=== PATIENT | male | born 1960 | race Caucasian/White ===

== ENCOUNTER 2018-01-15 13:57 | Inpatient (IN) ==
--- NOTE | 2018-01-14 09:10 | Discharge Summary ---
<Khushbu Ma - Last Filed: 01/14/18 09:07> Date of Encounter: 01/14/18 - Discharge Diagnosis (1) Status post total left knee replacement Priority: Primary Status: Acute (2) Arthritis of left knee Priority: Primary Status: Chronic (3) HTN (hypertension) Priority: Secondary Status: Chronic Qualifiers: Hypertension type: unspecified Qualified Code(s): I10 - Essential (primary ) hypertension (4) HLD (hyperlipidemia) Priority: Secondary Status: Chronic Qualifiers: Hyperlipidemia type: unspecified Qualified Code(s): E78.5 - Hyperlipidemia , unspecified (5) Tobacco dependence Priority: Secondary Status: Chronic - Hospital Course Hospital course: Mr. Kamara is a 58 year old male - Time Spent with Patient Total time spent providing and/or coordinating discharge services: - Discharge Medications Home Medications: Aspirin Enteric Coated [Aspirin EC] 325 mg PO BID 10 Days #20 tablet. [Rx] OxyCODONE Immed Rel [Roxicodone 5 MG] 5 mg PO Q6HR PRN 7 Days #28 tablet [Rx] Amlodipine Besylate/Benazepril [Lotrel 5-20 mg Capsule] 1 tab PO DAILY 01/15/18 [History] HYDROcodone/Acet 5/325 mg [[place] 5-325 mg] 1 - 2 tab PO Q12H PRN 01/15/18 [ History] hydroCHLOROthiazide [Hydrochlorothiazide] 25 mg PO DAILY 01/15/18 [History] Allergies/Adverse Reactions: 3 Allergy/AdvReac Type Severity Reaction Status Date / Time No Known Allergies Allergy Verified 01/15/18 14:23 Primary care physician: Nadya Sam CNP - Patient Status Disposition: Home, Self-Care Condition: Good - Discharge Instructions Follow Up With: Nadya Sam CNP [Primary Care Provider] - <Felix Davis - Last Filed: 01/16/18 06:15> Orders not resulted at time of discharge: Pending orders 01/15/18 01:00 XR knee LT limited 1-2V [XR] Routine Hemoglobin and Hematocrit [HEME] Routine Date of Encounter: 01/16/18 Time of Encounter: 06:15 - Discharge Diagnosis (1) Status post total left knee replacement Priority: Primary Status: Acute (2) Arthritis of left knee Priority: Primary Status: Chronic (3) HTN (hypertension) Priority: Secondary Status: Chronic Qualifiers: Hypertension type: unspecified Qualified Code(s): I10 - Essential (primary ) hypertension (4) HLD (hyperlipidemia) Priority: Secondary Status: Chronic Qualifiers: Hyperlipidemia type: unspecified Qualified Code(s): E78.5 - Hyperlipidemia , unspecified (5) Tobacco dependence Priority: Secondary Status: Chronic - Hospital Course Hospital course: Mr. Kamara is a 58 year old male As post left total knee replacement The patient had an uneventful postoperative course. They received antibiotics and physical therapy and were discharged in stable condition. There will follow -up in the office in 2 weeks. - Time Spent with Patient Total time spent providing and/or coordinating discharge services: Primary care physician: Nadya Sam CNP - Patient Status Functional capacity at discharge: uses cane/walker Overall status at discharge: patient is progressing back to baseline
[2018-01-15] MEDS ORDERED: Albuterol 2.5 MG/3 ML NEBULIZER IH ONE (14:22)
[2018-01-15] MEDS ORDERED: CeFAZolin Syr 2,000MG/20 ML 2,000 MG/20 ML SYRINGE IVPB ONE (14:22)
[2018-01-15] MEDS ORDERED: Ringers Solution, Lactated 1,000 ML IVC SCH ×2 (14:30→20:43)
[2018-01-15] MEDS ORDERED: Gabapentin 300 MG CAPSULE PO ONE (15:24)
[2018-01-15] MEDS ORDERED: Famotidine 20 MG/2 ML VIAL IVP ONE (15:24)
--- NOTE | 2018-01-15 16:28 | History & Physical Report ---
Date of Encounter: 01/15/18 Time of Encounter: 16:28 24 Hour HP Update - Instructions Instructions: If the History and Physical is less than 30 days old and was completed prior to A.M. admission and or procedure and has NOT been updated on calendar day of procedure please complete this update prior to performing procedure. - Update Patient reports changes in Medical Condition: No Changes in examination, assessment, or condition: No Changes in Medication: No Preop tests/diagnostics Reviewed: Yes Surgery Remains Indicated: Yes Consent for Planned Operative Procedure(s) Verified: Yes - Pre-Operative Checklist Preoperative Checklist Indicated: No Prophylactic Antibiotic Ordered: Yes Is VTE Prophylaxis Indicated?: Yes
[2018-01-15] MEDS ORDERED: *HR* Midazolam HCl 2 MG/2 ML VIAL ONE (17:06)
[2018-01-15] MEDS ORDERED: *HR* FentaNYL (PF) 100 MCG/2 ML VIAL ONE (17:06)
[2018-01-15] MEDS ORDERED: *HR* Propofol 200 MG/20 ML VIAL IVP ONE (17:06)
[2018-01-15] MEDS ORDERED: *HR* Succinylcholine 200 MG/10 ML VIAL IVP ONE (17:06)
[2018-01-15] MEDS ORDERED: Ondansetron 4 MG/2 ML VIAL ONE (17:06)
[2018-01-15] MEDS ORDERED: Dexamethasone 4 MG/ML VIAL ONE (17:06)
[2018-01-15] MEDS ORDERED: Lidocaine -MPF 2% 2 ML VIAL ONE (17:07)
--- NOTE | 2018-01-15 17:37 | Anesthesia Evaluation PreOp ---
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 [Rx] OxyCODONE Immed Rel [Roxicodone 5 MG] 5 mg PO Q6HR PRN 7 Days #28 tablet [Rx] Amlodipine Besylate/Benazepril [Lotrel 5-20 mg Capsule] 1 tab PO DAILY 01/15/18 [History] HYDROcodone/Acet 5/325 mg [[place] 5-325 mg] 1 - 2 tab PO Q12H PRN 01/15/18 [ History] hydroCHLOROthiazide [Hydrochlorothiazide] 25 mg PO DAILY 01/15/18 [History] 3 Allergy/AdvReac Type Severity Reaction Status Date / Time No Known Allergies Allergy Verified 01/15/18 14:23 - Meds/Allergy Pre-op Review Medications Reviewed: Yes Allergies Reviewed: Yes Beta Blockers on Current Med List: No Anesthesia Results - Labs Laboratory Tests 01/08/18 01/08/18 13:41 13:41 Hgb 15.4 Hct 43.6 Plt Count 283 Sodium 134 L Potassium 3.9 BUN 14 Creatinine 0.85 - Imaging EKG: report reviewed (SR) Anesthesia Exam O2 Sat Height 1.88 m Height 1.88 m Weight 100.698 kg Weight 100.698 kg O2 Sat by Pulse Oximetry 96 Vital Signs Temp Pulse Resp BP Pulse Ox 98.6 F 74 16 117/71 96 01/15/18 14:23 01/15/18 14:23 01/15/18 14:23 01/15/18 14:23 01/15/18 14:23 Height: 6'2 Weight: 222 lbs NPO (# of Hours): MN Pain Scale: 0 - HEENT Pupil (Motor): Pupils equal, EOMI Mallampati: II Teeth: Normal Oral Opening: Greater than 3 - VAT CLEANER LOC: Oriented VAT CLEANER Motor: Normal RUE, Normal LUE, Normal RLE, Normal LLE, Normal Face VAT CLEANER Sensory: Normal: RUE, LUE, RLE, LLE, Face - Cardiac Rhythm: Regular Murmur: None JVD: No Carotid Bruit: No - Pulmonary Breath Sounds: bilateral Clear Respiratory Effort: Symmetrical Anesthesia Assess/Plan ASA Score: 2 Modified Susan Scale for Level of Consciousness: Cooperative, oriented, and tranquil Anesthetic Plan: Regional, MAC Monitoring Plan: Standard Monitors Recovery Plan: PACU (Discussed SAB with Adductor Canal Block, MAC, possible GA, agrees to proceed)
[2018-01-15] MEDS ORDERED: ROPIVACAINE HCL/PF 0.5% 30 ML VIAL ONE (17:42)
[2018-01-15] MEDS ORDERED: Ethanol\\Acetic Acid\\Na Ace\\Ben 1,000 ML IRRIG.SOLN IR ONE (17:43)
[2018-01-15] MEDS ORDERED: *HR* Enoxaparin 30 MG/0.3 ML SYRINGE SQ SCH (18:00)
[2018-01-15] MEDS ORDERED: Lidocaine -MPF 4% 5 ML AMPUL ONE (18:04)
[2018-01-15] MEDS ORDERED: Propofol 500 MG/50 ML INFUS..BTL ONE ×2 (18:04→19:03)
--- NOTE | 2018-01-15 18:10 | Anesthesia Procedures ---
Date of Encounter: 01/15/18 Time of Encounter: 17:35 Procedures: Anesthesia - Epidural/Spinal Patient ID/Chart reviewed: Yes Patient examined: Yes Supplemental Oxygen: Nasal Cannula (2) Sedation: Versed (mg): 2 Sedation: Fentanyl (mcg): 50 Site Prep: Aseptic Technique, Sterile prep and drape, Povidone-Iodine 1% Patient position: upright Local Anesthetic: Lidocaine 1% Amount of Local Anesthetic used: [address]: Tegaderm Interspace Used: L4-L5 Loss of Resistance (YAIMA): No Blood: No CSF: Yes Paresthesia: No Spinal Needle Gauge: 24 Spinal Dose: 2cc 0.5% Marcaine, 0.3 mg Duramorph Procedure: Patient sitting, monitors placed, sterile prep and drape midline L4-5, plus CSF, 24 gauge needle patient tolerated procedure well
--- NOTE | 2018-01-15 18:13 | Anesthesia Procedures ---
Date of Encounter: 01/15/18 Time of Encounter: 17:35 Procedures: Anesthesia - Nerve Block Procedure Date: 01/15/18 Time: 18:00 Pre-op Diagnosis: Left Knee OA Surgical Procedure: Left TKA Checklist: Correct Patient Identifier Correct side: Left Blood Thinner: No Monitor Applied: EKG, BP, Pulse Oximetry Supplemental Oxygen via Nasal Cannula (L/min): 2 Sedation: Versed (mg): 2 Sedation: Fentanyl (mcg): 50 Indication: Post Op Analgesia Pre-op Neuro Deficits: No Block Type: Other (Adductor Canal Block) Catheter placed: No Depth at skin (cm): 4 Sterile Technique: Yes Ultrasound used: Yes Anatomy identified: Yes Visual spread of Local: Yes Neuro Stimulation: No Blood on Needle Aspiration: No Smooth Injection of Local: Yes Pain with Injection of Local: No Prep: Chlorhexadine Needle: 21 x 100 mm Stimuplex Local: Ropivacaine (0.5%) Volume (cc): 30 Number of Attempts: 1 Complications: None/effective block Vitals: Vital Signs/O2 Sat/Glucose, Most Current Temp Pulse Resp BP Pulse Ox 01/15/18 17:54 74 16 131/78 99 01/15/18 17:41 78 16 117/88 98 01/15/18 17:37 98.6 F 74 16 117/71 96 01/15/18 17:30 98 16 118/73 01/15/18 14:23 98.6 F 74 16 117/71 96
[2018-01-15] MEDS ORDERED: *HR* PHENYLEPHRINE 1,000 MCG/10 ML SYRINGE IVP ONE (18:45)
[2018-01-15] MEDS ORDERED: MORPHINE SUL Oral CONC 10 MG/0.5 ML ORAL.SYG SL PRN (18:48)
[2018-01-15] MEDS ORDERED: *HR* OxyCODONE Immed Rel 5 MG TABLET PO PRN (18:48)
[2018-01-15] MEDS ORDERED: *HR* Promethazine 25 MG/ML VIAL IVP PRN (18:48)
[2018-01-15] MEDS ORDERED: Ondansetron 4 MG/2 ML VIAL IVP PRN ×2 (18:54→20:43)
[2018-01-15] MEDS ORDERED: Naloxone 0.4 MG/ML INJ IVP PRN ×2 (18:54→20:43)
[2018-01-15] MEDS ORDERED: Ibuprofen 400 MG TABLET PO PRN (18:54)
[2018-01-15] MEDS ORDERED: *HR* OxyCODONE/APAP 5/325 TABLET PO PRN ×2 (18:54→20:43)
--- NOTE | 2018-01-15 19:16 | Orthopedic Operative Note ---
Date of procedure: 01/15/18 Pre-op diagnosis: Left knee arthritis Post-op diagnosis: same Procedure: Procedure: Left robotic-assisted Total knee replacement Estimated blood loss: 200 cc Hardware: Metal and polyethylene replacement. [place] Femur: 6 Tibia: 7 PS insert: 13 Patella: 39 all press-fit Exam Under anesthesia: 0 degrees extension 5 degree varus as calculated by the robot full flexion and no instability Procedural Notes: Grade 4 arthritic changes all 3 compartments. Operative procedure: The patient was brought to the operating room and placed on the operating room table. After general anesthesia was administered the operative knee was examined. Findings were noted in the exam under anesthesia. The operative extremity was prepped and draped in sterile surgical fashion. The patient received IV antibiotics prior to skin incision. A standard midline incision was made centered over the patella. The incision was made through the skin and subcutaneous tissue. A medial parapatellar tendon approach was performed. Care was taken to preserve tissue along the medial aspect of the patella. And to protect the patella tendon. The deep MCL was released off the medial tibia. The infra patella fat pad was excised. The patella was everted and cut was made at the level of the insertion of the quadriceps and patella tendon. The patella was sized to a 39 the guide was seated and the lug holes are drilled. Knee was brought into flexion. Patient noted to have grade 4 arthritic changes all 3 compartments. Steinmann pins were placed in the tibia and the femur for the tibial and femoral arrays respectively. Checkpoints were also placed in the tibia and the femur for calculation purposes. The knee including the femur and the tibial registered. Osteophytes, ACL and PCL were excised at this point. Extension and flexion were assessed with a valgus stress components were adjusted on the computer to balance the knee. Femoral cuts were made first with robotic assistance, these included the anterior cut posterior cuts chamfer cuts. Tibial cut was then performed with robotic assistance as well. Bone fragments were removed, as well as the medial and lateral meniscus. The size 6 femoral guide was seated box cut was made lug holes are drilled. The size 7 tibial tray was seated and prepared with the fin cutter. Trial reduction with the 13 PS Hilda revealed extension of 0 degree 1 degree varus and full flexion. No varus valgus instability. Trial reduction revealed excellent patella tracking. All trial components were removed all bony surfaces were irrigated. The Tibia was seated followed by the femur, The Hilda size 13 was seated and secured patella. Patient had similar findings for motion and stability. The knee was closed by the PA. The knee was then irrigated out with 2 L of pulse irrigation. The extensor mechanism was closed with #2 FiberWire suture and #2 PDS suture. The subcutaneous tissue was then irrigated and closed deep with #1 PDS suture superficially with 0 PDS suture and skin was closed with zip tie The patient was then placed in a sterile dressing and a postoperative brace extubated and transferred to recovery room in stable condition. Anesthesia: spinal Surgeon: Felix Davis Was there an medical records assistant present: Yes Top Ironer: Katie Jerome Estimated blood loss (cc): 200 Condition: stable Disposition: PACU
[2018-01-15 20:24] LABS: Hematocrit 40.4 % (37.5-50.1); Hemoglobin 13.7 g/dL (12.9-16.9)
[2018-01-15] MEDS ORDERED: MOM Conc 10 ML UD.LIQ PO PRN (20:43)
[2018-01-15] MEDS ORDERED: Sennosides 8.6 MG TABLET PO PRN (20:43)
[2018-01-15] MEDS ORDERED: Temazepam 15 MG CAPSULE PO PRN (20:43)
--- NOTE | 2018-01-15 21:27 | Anesthesia Evaluation Post Op ---
Date of Encounter: 01/15/18 Time of Encounter: 21:25 - Vital Signs Vital Signs: Vital Signs/O2 Sat, Most Current Temp Pulse Resp BP Pulse Ox 97.6 F 64 16 128/96 96 01/15/18 20:15 01/15/18 20:15 01/15/18 20:15 01/15/18 20:15 01/15/18 20:15 - Lungs Lungs: Clear Ascult./Percussion - Airway Airway: Non-obstructed - Cardiovascular Regular Rate - Mental Status Mental Status: Alert & Oriented, Answers Appropriately - Pain Pain Scale: 0 Pain Scale used: Numeric (1 - 10) - Nausea Vomiting Nausea Vomiting: Not Present - Hydration Hydration: Ice chips - Discharge PostOp Status: Transfer Patient to floor
[2018-01-15] MEDS: ceFAZolin 2,000 MG in 0.9 % Sodium Chloride 100 ML IVPB SCH (23:38)
[2018-01-16] MEDS ORDERED: CeFAZolin Pre 2,000 MG/100 ML 2,000 MG/100 ML BAG IVPB SCH
[2018-01-16] MEDS: traMADol 50 MG TABLET PO PRN ×2 (01:21→10:13)
[2018-01-16 01:30] LABS: Hematocrit 39.6 % (37.5-50.1); Hemoglobin 13.5 g/dL (12.9-16.9)
[2018-01-16 01:59] LABS: BUN/Creatinine Ratio 13 (6-26); Blood Urea Nitrogen 12 mg/dL (6-20); Carbon Dioxide 26 mEq/L (23-29); Chloride 103 mEq/L (98-107); Glucose 183 mg/dL (70-105); Osmolality,Calculated 284 (280-300); Potassium 4.6 mEq/L (3.5-5.1); Sodium 135 mEq/L (136-145); eGFR For African Americans > 60 (> 60); eGFR For Non-African Americans > 60 (> 60)
[2018-01-16] MEDS: *HR* Enoxaparin 30 MG/0.3 ML SYRINGE SQ SCH ×2 (06:00→16:21)
--- NOTE | 2018-01-16 06:16 | Orthopedics Progress Note ---
Date of Encounter: 01/16/18 Time of Encounter: 06:16 - Assessment and Plan (1) Status post total left knee replacement Current Visit: No Status: Acute (2) Arthritis of left knee Current Visit: No Status: Chronic (3) HTN (hypertension) Current Visit: No Status: Chronic Qualifiers: Hypertension type: unspecified Qualified Code(s): I10 - Essential (primary ) hypertension (4) HLD (hyperlipidemia) Current Visit: No Status: Chronic Qualifiers: Hyperlipidemia type: unspecified Qualified Code(s): E78.5 - Hyperlipidemia , unspecified (5) Tobacco dependence Current Visit: No Status: Chronic Subjective Interval history: Patient was seen this morning doing well without complaints. Afebrile vital signs stable. Operative extremity: Neurovascularly intact Dressing clean dry and intact Calves nontender Assessment and plan: Continue with postoperative care Hematocrit 39 discharge today Objective Vital signs: Vital Signs Temp Pulse Resp BP Pulse Ox 01/16/18 03:28 98.7 F 71 18 137/87 96 01/15/18 23:42 98.9 F 71 18 121/79 96 01/15/18 23:32 98.9 F 71 18 121/79 96 01/15/18 22:24 98.1 F 71 16 125/82 97 01/15/18 20:15 97.6 F 64 16 128/96 96 01/15/18 20:05 73 14 129/98 97 01/15/18 19:55 70 16 120/92 100 01/15/18 19:45 98.3 F 75 14 114/70 99 01/15/18 18:17 76 16 115/80 99 01/15/18 17:54 74 16 131/78 99 01/15/18 17:41 78 16 117/88 98 01/15/18 17:37 98.6 F 74 16 117/71 96 01/15/18 17:30 98 16 118/73 01/15/18 14:23 98.6 F 74 16 117/71 96 Intake and Output 01/15/18 01/15/18 01/16/18 15:59 23:59 07:59 Intake Total 900 / 900 Output Total 200 / 200 Balance -200 / -200 900 / 900 Intake: Oral 900 / 900 Output: Urine 0 / 0 Estimated Blood Loss 200 / 200 Other: Weight 100.698 kg 100.698 kg - Labs CBC & BMP: 01/16/18 01:21 01/16/18 01:21 Labs: Abnormal lab results Sodium 135 mEq/L (136-145) L 01/16/18 01:21 Glucose 183 mg/dL (70-105) H 01/16/18 01:21 - VTE Documentation of Mechanical Device: Venous foot pump, device Consult Discharge Plan - Plan Referrals: Nadya Sam, QUARRY MANAGER [Primary Care Provider] -
[2018-01-16] MEDS: *HR* OxyCODONE Immed Rel 5 MG TABLET PO PRN ×4 (08:30→21:35)
[2018-01-16] MEDS: ceFAZolin 2,000 MG in 0.9 % Sodium Chloride 100 ML IVPB SCH (08:30)
[2018-01-16] MEDS: Lisinopril 20 MG TABLET PO SCH (08:30)
[2018-01-16] MEDS: hydroCHLOROthiazide 25 MG TABLET PO SCH (08:30)
[2018-01-16] MEDS: amLODIPine 5 MG TABLET PO SCH (08:34)
[2018-01-16] MEDS ORDERED: Acetaminophen IV 1,000 MG/100 ML INFUS..BTL IVPB PRN (11:46)
[2018-01-16] MEDS ORDERED: Ketorolac 30 MG/ML VIAL IVP PRN (11:49)
[2018-01-16] MEDS ORDERED: Ibuprofen 800 MG TABLET PO PRN (11:51)
[2018-01-16] MEDS: Gabapentin 300 MG CAPSULE PO SCH ×2 (14:45→20:11)
[2018-01-17 01:09] LABS: Hematocrit 31.9 % (37.5-50.1)
[2018-01-17 01:35] LABS: BUN/Creatinine Ratio 20 (6-26); Blood Urea Nitrogen 18 mg/dL (6-20); Calcium 8.7 mg/dL (8.6-10.3); Carbon Dioxide 26 mEq/L (23-29); Chloride 95 mEq/L (98-107); Glucose 148 mg/dL (70-105); Osmolality,Calculated 271 (280-300); Potassium 3.4 mEq/L (3.5-5.1); Sodium 128 mEq/L (136-145); eGFR For African Americans > 60 (> 60); eGFR For Non-African Americans > 60 (> 60)
[2018-01-17] MEDS: *HR* OxyCODONE Immed Rel 5 MG TABLET PO PRN ×3 (01:53→09:33)
[2018-01-17] MEDS: *HR* Enoxaparin 30 MG/0.3 ML SYRINGE SQ SCH (05:48)
[2018-01-17 06:48] VITALS: BP 138/76
--- NOTE | 2018-01-17 07:55 | Orthopedics Progress Note ---
Date of Encounter: 01/17/18 Time of Encounter: 07:55 - Assessment and Plan (1) Status post total left knee replacement Current Visit: No Status: Acute (2) Arthritis of left knee Current Visit: No Status: Chronic (3) HTN (hypertension) Current Visit: No Status: Chronic Qualifiers: Hypertension type: unspecified Qualified Code(s): I10 - Essential (primary ) hypertension (4) HLD (hyperlipidemia) Current Visit: No Status: Chronic Qualifiers: Hyperlipidemia type: unspecified Qualified Code(s): E78.5 - Hyperlipidemia , unspecified (5) Tobacco dependence Current Visit: No Status: Chronic Subjective Interval history: Patient was seen this morning doing well without complaints. Afebrile vital signs stable. Operative extremity: Neurovascularly intact Dressing clean dry and intact Calves nontender Assessment and plan: Continue with postoperative care Hematocrit 31 discharge today Objective Vital signs: Vital Signs Temp Pulse Resp BP Pulse Ox 01/17/18 06:47 98.8 F 87 16 138/76 95 01/17/18 04:12 99.0 F 96 18 136/81 96 01/16/18 22:29 98.4 F 98 18 150/85 97 01/16/18 18:40 98.9 F 87 16 108/59 95 01/16/18 16:42 99.3 F 84 16 133/81 97 01/16/18 11:29 97.6 F 82 16 148/90 94 01/16/18 08:01 99.4 F 85 18 144/91 98 Intake and Output 01/16/18 01/16/18 01/17/18 15:59 23:59 07:59 Intake Total 560 / 560 100 / 100 50 / 50 Balance 560 / 560 100 / 100 50 / 50 Intake: IV Fluids 200 / 200 Ancef 2,000 MG In 0.9 % Sodium 200 / 200 Chloride 100 ML @ 25 mls/hr IVPB Q8HR [facility] Rx#:[id number] Oral 360 / 360 100 / 100 50 / 50 Other: Meal Breakfast Percent of Meal Consumed 100% # Voids 1 2 - Labs CBC & BMP: 01/17/18 00:42 01/17/18 00:42 Labs: Abnormal lab results Hgb 11.0 g/dL (12.9-16.9) L D 01/17/18 00:42 Hct 31.9 % (37.5-50.1) L 01/17/18 00:42 Sodium 128 mEq/L (136-145) L 01/17/18 00:42 Potassium 3.4 mEq/L (3.5-5.1) L D 01/17/18 00:42 Chloride 95 mEq/L (98-107) L 01/17/18 00:42 Glucose 148 mg/dL (70-105) H 01/17/18 00:42 Calculated Osmolality 271 (280-300) L 01/17/18 00:42 - VTE Documentation of Mechanical Device: Venous foot pump, device Consult Discharge Plan - Plan Additional Instructions: Discharge Instructions: Total Knee Replacement Please call [facility] ([phone]), your Primary Care Physician, or report to the Emergency Room if you have any of the following symptoms: Nausea, vomiting, fever greater that 101.5, swelling, chest pain, shortness of breath, increased pain/redness/drainage/odor for your incision site, numbness/ tingling, or any other concerning symptoms. ACTIVITY:Weight-bearing as tolerated. You may progress off support (crutches or walker) as tolerated. MEDICATIONS: Upon discharge resume your home medications. Take all the medications as prescribed. Take a stool softener if taking narcotic pain medications. Stool softeners are only effective if you drink enough fluids. Drink 6-8 glass of water or fluids a day, unless this is not allowed for another health problem. Despite using stool softeners, if you haven't had a bowel movement in 3 days, please switch to a gentle laxative. Gentle laxatives are sold over the counter. You should have a bowel movement within 24 hours, if not call the office. You will be discharged from the hospital with a prescription for pain medication. You are encouraged to decrease the use of narcotic pain medication as tolerated. Should you require a refill, please call the office. [facility] prescribes narcotic pain medication for only 4-6 weeks after surgery. If you require pain medication beyond this time period, you may be referred to your Primary Care Physician or to the Pain Clinic for further evaluation. Plan ahead for refills on pain medication as many narcotics either need to be picked up at the office or mailed. It is best to call 48-72 hours in advance of needing a prescription refill so you don't run out of medication. To help control the post-operative pain, you may take NSAIDs (Aleve,Advil, Motrin, Ibuprofen, Naprosyn) or Tylenol as prescribed on the bottle in addition to the pain medication. ANTICOAGULATION (blood thinners): Continue your Aspirin, Lovenox or Coumadin as prescribed to help prevent a blood clot in the leg or in the lungs. As long as your incision remains dry and you tolerate the NSAIDs (Aleve, Advil, Motrin, ibuprofen, naprosyn), it is OK to use the NSAIDS while you are taking your anticoagulation medication. Should your incision start to drain, stop the NSAID and contact our office. Common symptoms of blood clot in the legs include: localized pain, swelling, calf tenderness, redness or discoloration of the skin. Blood clot in the lung symptoms include: shortness of breath, rapid pulse, sweating, and chest pain that worsens with deep breathing, coughing up blood, lightheadedness, feelings of anxiety. If you experience any of these symptoms notify your physician immediately, go to the emergency room, or if having trouble breathing, call 911. WOUND CARE: Leave the dressing on for 7 to 10days. You may change the dressing if it becomes saturated greater than 50%. Do not get the dressing wet at anytime. Wash your hands with antibacterial soap, rinse and dry prior to any wound care. If you have helena the visiting nurse or rehab facility can remove the stapes 10-14 days after surgery and place steri-strips across the wound. Leave the steri-strips in place until they fall off on their won. You may let water from the shower run on top of the steri-strips. If you do not have a visiting nurse or rehab facility, you will need to return to the office at 10-14 days for the helena to be removed. If you have itching or redness around the dressing call the office. FOLLOW-UP: Please follow up with your surgeon in the orthopedic clinic in 4 weeks from the day of surgery. If you have helena that need to be removed, you will need to come back to the office in 10-14 days from the day of surgery. Referrals: Nadya Sam, SPRINKLER INSTALLER [Primary Care Provider] -
[2018-01-17] MEDS: Gabapentin 300 MG CAPSULE PO SCH (08:26)
[2018-01-17] MEDS: Lisinopril 20 MG TABLET PO SCH (08:26)
[2018-01-17] MEDS: hydroCHLOROthiazide 25 MG TABLET PO SCH (08:26)
[2018-01-17] MEDS: amLODIPine 5 MG TABLET PO SCH (08:26)
--- NOTE | 2018-01-17 14:37 | Event Note ---
Date of Encounter: 01/16/18 Time of Encounter: 11:30 Delayed entry PCR- POD#1 L TKR robot Ryan 01/15/18 PCR - Patient seen at bedside. Fiance per patient at bedside Labwork and medications reviewed. Pain control: Inadequate - patient with sudden spasming and gripping bedrails and writhing in the bed. States that the pain medicine 10mg q4 hrs is "not cutting it". Informed patient and discussed at length need for mutiple modalities to control pain medication. Will add Ofirmev, Tylenol for after Ofirmev administration, Toradol, Ibuprofen for after Toradol administration, Cyclobenzaprine, Lidoderm patches. Will plan to prescribe Cyclobenzaprine with discharge. Participating in PT. All questions and concerns addressed. Educated on use of incentive spirometer, ambulation, and hydration. Patient educated on post-operative restrictions and care. Addressed: Patient staying tonight given inadequate pain control. D/C plan: Home tomorrow with outpatient therapy
--- NOTE | 2018-01-18 11:53 | Physician Discharge Referral ---
Home Health/Hosp Referral Info Transfer to: Home Health Attending Provider: Dr Davis - Diagnosis (1) Status post total left knee replacement Priority: Primary Status: Acute (2) Arthritis of left knee Priority: Primary Status: Chronic (3) HTN (hypertension) Priority: Secondary Status: Chronic (4) HLD (hyperlipidemia) Priority: Secondary Status: Chronic (5) Tobacco dependence Priority: Secondary Status: Chronic - Respiratory Orders Smoking Cessation: Smoking cessation has been advised. For more information, call the [place] Tobacco Quit Line at 7-929-HDVV-NOW. - Dressing/Wound Care Site: left knee Type of Dressing/Treatments w/Frequency: Opsite placed. Keep dressing intact until first follow up appointment. If greater than 50% saturated, notify office, remove dressing and place appropriate dressing back in place. Leave Zipline intact. Opsite dressing is water resistant, not water-proof. OK to shower, but do not get dressing wet. - Diet/Nutrition Diet/Nutrition Orders: Regular - Activity Activity Orders: Up ad jerry, Ambulate, Chair, Walker Activity: List: Total Knee replacement Precautions x 6 weeks Apply cold therapy wrap 3-6x/day for 20 minutes at a time. Encourage ambulation throughout the day and incentive spirometer 10x/hour. Elevate affected extremity above heart as tolerated. Brace: Wear knee immobilizer at night x 2 weeks. - Services Needed Following services are medically necessary services: Nursing, Home Health Aide, Physical Therapy, Occupational Therapy - Transfer Medications Home Medications: Aspirin Enteric Coated [Aspirin EC] 325 mg PO BID 10 Days #20 tablet. [Rx] OxyCODONE Immed Rel [Roxicodone 5 MG] 5 mg PO Q6HR PRN 7 Days #28 tablet [Rx] Amlodipine Besylate/Benazepril [Lotrel 5-20 mg Capsule] 1 tab PO DAILY 01/15/18 [History] HYDROcodone/Acet 5/325 mg [[place] 5-325 mg] 1 - 2 tab PO Q12H PRN 01/15/18 [ History] hydroCHLOROthiazide [Hydrochlorothiazide] 25 mg PO DAILY 01/15/18 [History] Allergies/Adverse Reactions: 3 Allergy/AdvReac Type Severity Reaction Status Date / Time No Known Allergies Allergy Verified 01/15/18 14:23 Certification: Further, I certify that my clinical findings support that this patient is homebound (i.e. absences from home require considerable and taxing effort and are for medical reasons or yarsani services or infrequently or short duration when for other reasons) because: Homebound Reason: Post-surgery restriction and or conditions limit ability to leave home Attestation: My signature below is to certify that this patient is under my care and that I, or nurse practitioner, or a physician assistant gm of content & delivery working with me, has a face-to- face encounter with this patient.
== END 2018-01-17 10:29 | disposition home or self-care (01) | DRG 470 ==
LOC: SAMDAY 13:57 → 3NENU 20:36
PROVIDERS: ADMIT Orthopaedic Surgery; ATTEND Orthopaedic Surgery